=== PATIENT | female | born 1960 | race Caucasian/White ===

== ENCOUNTER 2017-03-08 12:27 | Day surgery (SDC) | payer SELFPAY ==
[2017-03-08 12:36] VITALS: BMI 23.1
--- NOTE | 2017-03-08 13:25 | ED.ABDFE ---
HPI - Time seen Time seen: 13:05 - PCP Primary Care Physician: KATHY SHEFFIELD - Complaint Chief Complaint Doctors Comments: Patient admits to abdominal pain for three days worse today; she was seen by her primary care physician today, his exam revealed RLQ pain. He contacted the surgeron and referred patient to the ED for evaluation. Chief Complaint:: PT C/O RLQ PAIN THAT RADIATES TO HER RIGHT BACK THAT STARTED LAST NIGHT AND ITS WORSE TODAY AND THAT SHE W NAUSEATED AND SHE WENT TO SEE PER PC AND HER PERFORMED A UA AND CALLED DR. LOMELI AND TOLD PT TO COME TO THER ER.. - Source History Provided: Patient - Mode of arrival Mode of Arrival: Ambulatory - Timing Onset of Chief Complaint: 03/07/17 PMH - PMH Past Medical History: Yes Past Medical History: Asthma Past Surgical History: Yes Surgical History: Cholecystectomy - Family History History of Family Medical Conditions: Yes Family Medical History: Cancer - Social History Does patient currently use any type of tobacco product: No Have you used tobacco products in the last 12 months: No Type of Tobacco Use: None Does any household member use tobacco: No Alcohol Use: None Do you use any recreational Drugs:: No Lives With: Family Lives Where: Home - infectious screening In the last 2 months have you had wt loss of >10#?: NO Have you had fever, night sweats or hemotysis?: No Have you traveled outside the country in the last 6 months?: No Isolation: Standard ROS - Review of Systems Eyes: No Symptoms Reported ENTM: No Symptoms Reported Respiratoy: No Symptoms Reported Cardiovascular: No Symptoms Reported Gastrointestinal/Abdominal: No Symptoms Reported Genitourinary: No Symptoms Reported Neurological: No Symptoms Reported Musculoskeletal: No Symptoms Reported Integumentary: No Symptoms Reported Hematologic/Lymphatic: No Symptoms Reported Endocrine: No Symptoms Reported Psychiatric: No Symptoms Reported All Other Systems: Reviewed and Negative PE - Vital Signs Vitals: Temperature 98.3 F Pulse Rate [Left Brachial] 77 Pulse Rate 74 Respiratory Rate 22 Blood Pressure [Left Arm] 144/66 Blood Pressure 124/59 O2 Sat by Pulse Oximetry 97 - General General Appearance: Alert, In No Apparent Distress - Head Head Exam: Normal Inspection, Atraumatic - Eyes Eye exam: Normal Appearance, PERRL, EOMI - ENT ENT Exam: Normal Exam - Neck Neck Exam: Normal Inspection, Full ROM - Chest Chest Inspection: Normal Inspection - Respiratory Respiratory Exam: Normal Lung Sounds Bilat Respiratory Exam: Bilateral Clear to Auscultation - Cardiovascular Cardiovascular Exam: Regular Rate, Normal Rhythm - Abdominal Exam Abdominal Exam: Normal Inspection, Normal Bowel Sounds Abdominal Tenderness: RLQ - Rectal Rectal Exam: Deferred - Back Back Exam: Normal Inspection - Extremeties Extremities Exam: Normal Inspection, Full ROM - External Exam: Female: Deferred : Speculum Exam (Female): Deferred : Bimanual Exam (female): Deferred - Neurologic Neurological Exam: Alert, Oriented X3, CN II-XII Intact - Psychiatric Psychiatric Exam: Normal Affect, Normal Mood - Skin Skin Exam: Warm, Dry, Intact Course - Consultation Called: 17:50 ROR - Labs Reviewed Result Diagrams: 03/08/17 13:13 03/08/17 13:13 Laboratory: WBC 13.6 X10^3/uL (3.6-10.0) H 03/08/17 13:13 RBC 5.15 X10^6/uL (3.5-5.4) 03/08/17 13:13 Hgb 14.2 g/dL (12.0-16.0) 03/08/17 13:13 Hct 42.0 % (36.0-47.0) 03/08/17 13:13 MCV 81.7 fL (80.0-100.0) 03/08/17 13:13 MCH 27.7 pg (27.0-34.0) 03/08/17 13:13 MCHC 33.9 g/dL (33.0-35.0) 03/08/17 13:13 RDW 13.6 % (11.6-16.5) 03/08/17 13:13 Plt Count 266 X10^3/uL (150.0-450.0) 03/08/17 13:13 MPV 7.7 fL (7.4-11.0) 03/08/17 13:13 Neut % 70.6 % (42.0-75.0) 03/08/17 13:13 Lymph % 18.5 % (21.0-51.0) L 03/08/17 13:13 Riley % 8.9 % (0.0-13.0) 03/08/17 13:13 Eos % 1.4 % (0.9-2.9) 03/08/17 13:13 Baso % 0.6 % (0.2-1.0) 03/08/17 13:13 Neut # 9.6 x10^3/uL (2.2-4.8) H 03/08/17 13:13 Lymph # 2.5 X10^3/uL (1.3-2.9) 03/08/17 13:13 Riley # 1.2 x10^3/uL (0.3-0.8) H 03/08/17 13:13 Eos # 0.2 x10^3/uL (0.0-0.2) 03/08/17 13:13 Baso # 0.1 X10^3/uL (0.0-0.1) 03/08/17 13:13 Absolute Nucleated RBC 0.0 /100WBC 03/08/17 13:13 Sodium 139 mmol/L (136-145) 03/08/17 13:13 Corrected Sodium TNP 03/08/17 13:13 Potassium 3.6 mmol/L (3.5-5.1) 03/08/17 13:13 Chloride 103 mmol/L (98-107) 03/08/17 13:13 Carbon Dioxide 29.7 mmol/L (21-32) 03/08/17 13:13 BUN 12 mg/dL (7-18) 03/08/17 13:13 Creatinine 0.86 mg/dL (0.55-1.02) 03/08/17 13:13 Est GFR (MDRD) Af Amer > 60 (>60) 03/08/17 13:13 Est GFR (MDRD) Non-Af > 60 (>60) 03/08/17 13:13 Glucose 98 mg/dL (65-99) 03/08/17 13:13 Calcium 9.3 mg/dL (8.5-10.1) 03/08/17 13:13 Corrected Calcium TNP 03/08/17 13:13 Total Bilirubin 1.00 mg/dL (0.2-1.0) 03/08/17 13:13 AST 13 Units/L (15-37) L 03/08/17 13:13 ALT 17 Units/L (12-78) 03/08/17 13:13 Alkaline Phosphatase 62 Units/L (46-116) 03/08/17 13:13 C-Reactive Protein 46.10 mg/L (0-3.0) H 03/08/17 13:13 Total Protein 8.0 g/dL (6.4-8.2) 03/08/17 13:13 Albumin 3.9 g/dL (3.4-5.0) 03/08/17 13:13 Globulin 4.1 g/dL (2.5-4.5) 03/08/17 13:13 Albumin/Globulin Ratio 1.0 Ratio (1.1-2.1) L 03/08/17 13:13 Specimen Type Clean catch urine 03/08/17 15:20 Urine Color Yellow (YELLOW) 03/08/17 15:20 Urine Appearance Hazy (CLEAR) 03/08/17 15:20 Urine pH 6.5 (5.0 - 8.0) 03/08/17 15:20 Ur Specific [place] 1.010 (1.000-1.030) 03/08/17 15:20 Urine Protein Negative (NEGATIVE) 03/08/17 15:20 Urine Glucose (UA) Negative (NEGATIVE) 03/08/17 15:20 Urine Ketones Negative (NEGATIVE) 03/08/17 15:20 Urine Occult Blood 1+ (NEGATIVE) 03/08/17 15:20 Urine Nitrite Negative (NEGATIVE) 03/08/17 15:20 Urine Bilirubin Negative (NEGATIVE) 03/08/17 15:20 Urine Urobilinogen Normal (NORMAL) 03/08/17 15:20 Ur Leukocyte Esterase 3+ (NEGATIVE) 03/08/17 15:20 Urine RBC 0-2 /HPF (NEGATIVE) 03/08/17 15:20 Urine WBC 3-5 /HPF (NEGATIVE) 03/08/17 15:20 Ur Squamous Epith Cells Few /HPF (NEGATIVE) 03/08/17 15:20 Urine Bacteria Trace /HPF (NEGATIVE) 03/08/17 15:20 Ur Culture Indicated? No/not indicated 03/08/17 15:20 - XRAY XRAY Interpreted by: Radiologist (CT Abd/pelv: There is inflammatory stranding within the right lower quadrant, with mild thickening and hyperemia of the appendix with a 1.5x1.3cm collection adjacent to the appendical tip. No significant thicikening or dilatation of the remainding lower GI tract appreciated. The uterus and ovaries are noted. The urinary bladder and rectum are unremarkable. No significant layering free fluid or adenopathy appreciated. Impression: Acute appendicitis with a 1.5x1.2cm collection adjacent to the distal appendix suggesting small abscess or contained perforation.) - Diagnosis Discharge Problem: Appendicitis Qualifiers: Appendicitis type: acute appendicitis Acute appendicitis type: unspecified acute appendicitis type Qualified Code(s): K35.80 - Unspecified acute appendicitis - Discharge Plan Condition: Stable - Follow ups/Referrals Follow ups/Referrals: KATHY SHEFFIELD [Primary Care Provider] - 3 days - Instructions
[2017-03-08 13:45] LABS: BASOPHILS # (AUTO) 0.1 X10^3/uL (0.0-0.1); BASOPHILS % (AUTO) 0.6 % (0.2-1.0); EOSINOPHILS # (AUTO) 0.2 x10^3/uL (0.0-0.2); EOSINOPHILS % (AUTO) 1.4 % (0.9-2.9); HEMOGLOBIN 14.2 g/dL (12.0-16.0); LYMPHOCYTES # (AUTO) 2.5 X10^3/uL (1.3-2.9); LYMPHOCYTES % (AUTO) 18.5 % (21.0-51.0); MEAN CORPUSCULAR HEMOGLOBIN 27.7 pg (27.0-34.0); MEAN CORPUSCULAR HGB CONC 33.9 g/dL (33.0-35.0); MEAN CORPUSCULAR VOLUME 81.7 fL (80.0-100.0); MEAN PLATELET VOLUME 7.7 fL (7.4-11.0); MONOCYTES # (AUTO) 1.2 x10^3/uL (0.3-0.8); MONOCYTES % (AUTO) 8.9 % (0.0-13.0); NEUTROPHILS # (AUTO) 9.6 x10^3/uL (2.2-4.8); NEUTROPHILS % (AUTO) 70.6 % (42.0-75.0); PLATELET COUNT 266 X10^3/uL (150.0-450.0); RED BLOOD COUNT 5.15 X10^6/uL (3.5-5.4); RED CELL DISTRIBUTION WIDTH 13.6 % (11.6-16.5); WHITE BLOOD COUNT 13.6 X10^3/uL (3.6-10.0)
[2017-03-08] MEDS: NS 1000 ML 1,000 ML IV SCH ×2 (13:49→22:47)
[2017-03-08 13:53] LABS: ALANINE AMINOTRANSFERASE 17 Units/L (12-78); ALBUMIN 3.9 g/dL (3.4-5.0); ALKALINE PHOSPHATASE 62 Units/L (46-116); ASPARTATE AMINO TRANSFERASE 13 Units/L (15-37); BLOOD UREA NITROGEN 12 mg/dL (7-18); CALCIUM 9.3 mg/dL (8.5-10.1); CARBON DIOXIDE 29.7 mmol/L (21-32); CHLORIDE 103 mmol/L (98-107); CREATININE 0.86 mg/dL (0.55-1.02); SODIUM 139 mmol/L (136-145); eGFR BLACK RACES > 60 (>60); eGFR NON BLACK RACES > 60 (>60)
[2017-03-08] MEDS ORDERED: ROBINUL ONE (15:05)
[2017-03-08] MEDS ORDERED: VERSED ONE (15:05)
[2017-03-08] MEDS ORDERED: ZOFRAN INJ 4 MG VIAL ONE (15:05)
[2017-03-08] MEDS ORDERED: DIPRIVAN VIAL ONE (15:05)
[2017-03-08] MEDS ORDERED: XYLOCAINE 2 % (PLAIN) ONE (15:05)
[2017-03-08] MEDS ORDERED: NEOSTIGMINE INJ ONE (15:05)
[2017-03-08] MEDS ORDERED: NORCURON INJ 10 MG VIAL ONE (15:05)
[2017-03-08] MEDS ORDERED: SUPRANE IN ONE (15:05)
[2017-03-08 15:42] LABS: BILIRUBIN,URINE NEGATIVE (NEGATIVE); BLOOD/HEMOGLOBIN,URINE 1+ (NEGATIVE); GLUCOSE, URINE NEGATIVE (NEGATIVE); KETONES,URINE NEGATIVE (NEGATIVE); LEUKOCYTE ESTERASE ,URINE 3+ (NEGATIVE); NITRITES,URINE NEGATIVE (NEGATIVE); PH,URINE 6.5 (5.0 - 8.0); PROTEIN,URINE NEGATIVE (NEGATIVE); UROBILINOGEN,URINE NORMAL (NORMAL)
[2017-03-08 15:49] LABS: APPEARANCE,URINE HAZY (CLEAR); BACTERIA,URINE TRACE /HPF (NEGATIVE); COLOR,URINE YELLOW (YELLOW); RBC,URINE 0-2 /HPF (NEGATIVE); SQUAMOUS EPITHELIAL CELL,UR FEW /HPF (NEGATIVE)
[2017-03-08] MEDS ORDERED: NS 100 ML IV 100 ML IV ONE (16:44)
--- NOTE | 2017-03-08 17:28 | CT ---
CT abdomen and pelvis with contrast Indication: Right lower quadrant pain, leukocytosis Comparison: None Technique: CT images of the abdomen and pelvis were obtained after IV and oral contrast administratio n. Automatic exposure control was utilized. Findings: The lung bases are clear. No acute skeletal abnormality. Previous cholecystectomy. The liver, spleen, stomach, duodenum, pancreas, adrenals, and kidneys demon strate no significant abnormality. Small simple appearing renal cysts are noted bilaterally. No urete ral stone identified. There is inflammatory stranding within the right lower quadrant, with mild thickening and hyperemia o f the appendix, with a 1.5 x 1.3 cm collection adjacent to the appendiceal tip (coronal image 22). No significant thickening or dilatation of the remaining lower GI tract appreciated. The uterus and ova srinath are noted. The urinary bladder and rectum are unremarkable. No significant layering free fluid o r adenopathy appreciated. Impression: Acute appendicitis with a 1.5 x 1.2 cm collection adjacent to the distal appendix, suggesting small a bscess or contained perforation. Reported By:
[2017-03-08] MEDS ORDERED: MARCAINE 0.25% INJ ONE (18:48)
[2017-03-08] MEDS ORDERED: LR 1000 ML IV 1,000 ML IV ONE ×2 (18:48→20:33)
[2017-03-08] MEDS ORDERED: ANCEF VIAL 1 GM ONE (18:48)
[2017-03-08] MEDS ORDERED: DUONEB 0.5 MG/3 MG ONE (18:51)
[2017-03-08] MEDS ORDERED: FENTANYL INJ 250 mcg ONE (19:00)
[2017-03-08] MEDS ORDERED: QUELICIN (OR ANECTINE) ONE (19:05)
[2017-03-08] MEDS ORDERED: XYLOCAINE 1 % (PLAIN) ONE (19:39)
[2017-03-08] MEDS ORDERED: NS IRRIGATION 3000 ML 3,000 ML IR ONE (20:07)
[2017-03-08] MEDS ORDERED: FENTANYL INJ 100 mcg ONE (20:13)
[2017-03-08] MEDS ORDERED: DILAUDID INJ ONE (20:13)
[2017-03-08] MEDS ORDERED: DILAUDID INJ IVP PRN (21:11)
[2017-03-08] MEDS ORDERED: PHENERGAN INJ 25 MG IVP PRN (21:11)
[2017-03-08] MEDS ORDERED: BENADRYL INJ 50 MG VIAL IVP PRN (21:11)
[2017-03-08] MEDS ORDERED: ZOFRAN INJ 4 MG VIAL IVP PRN (21:11)
[2017-03-08] MEDS ORDERED: REGLAN INJ 10 MG VIAL IVP PRN (21:11)
--- NOTE | 2017-03-08 21:17 | OR.GENERIC ---
Post-Op Note Generic - Post-Op Note Operative Report: Date of Operation: March 08, 2017 Pre-Operative Diagnosis: Acute appendicitis. Post-Operative Diagnosis: Suppurative appendicitis. Procedure: Laparoscopic appendectomy. Surgeon: Kennedy Haywood MD. [employer] Worker: Sergio Lopez CRNA. Specimen: Appendix. Estimated blood loss: Minimal. Complications: None. Summary: The patient is a 56 year old female who presented with appendicitis. The patient was offered appendectomy. The risk and benefits of the procedure including difficulty with anesthesia, bleeding, infection, conversion to open procedure, hernia formation, DVT, as well as PE were discussed with the patient. The patient understood these risks and requested the procedure. On March 08, 2017, the patient was brought to the operative theatre. A time out was performed verifying the patient and procedure. After satisfactory induction of general endotracheal anesthesia, the abdomen was prepped with Chloraprep and draped in the usual sterile fashion. The skin and subcutaneous tissue inferior to the umbilicus was anesthetized using local anesthetic. The skin was incised sharply. A 12 mm trocar was placed though the incision and into the peritoneal cavity using the Optiview technique. Carbon dioxide was infiltrated through this trocar to obtain a pneumoperitoneum of 15 mm Hg. A camera was placed through this trocar and swept in all directions. No injury was seen from entering the peritoneal cavity. A site was selected in the right upper quadrant for our 2nd trocar. The skin and fascia was anesthetized using local anesthetic. The skin was incised sharply. A 5 mm trocar was placed into the peritoneal cavity under direct visualization. An additional 5 mm trocar was placed in the left lower quadrant in a similar fashion. The cecum was elevated. Inflammation was noted along the appendix with adhesions at the midportion and tip of the appendix. The appendix was freed using blunt dissection. The appendix was elevated and a window made in the mesoappendix. The appendix was divided at the cecum using a SHYLA stapler with a tissue load. The mesoappendix was divided using a SHYLA stapler with vascular loads x 2. Arterial bleeding from the mesoappendix staple lines was controlled using 5 mm clips x 2. No further bleeding was seen. The appendix was placed in an endobag and removed through the umbilical trocar site. The staple lines were irrigated and no persistent bleeding noted. The right lower quadrant was irrigated. All irrigation fluid was removed. The 5 mm trocars were removed under direct visualization and no bleeding seen. The umbilical trocar was removed and insufflation evacuated. The fascia at the umbilicus was re- approximated using a 0-Vicryl placed in a [id number] configuration and a single interrupted stitch. The skin edges at all incisions were re- approximated using inverted, interrupted 4-0 Monocryl sutures. Benzoin and Steri-strips were placed. Sterile dressings were placed. The patient was awakened and taken to the recovery room in stable condition. There were no complications. All counts were correct.
[2017-03-08] MEDS ORDERED: ZOSYN VIAL 3.375 GM IV SCH (22:00)
[2017-03-08] MEDS: ZOSYN VIAL 3.375 GM 3.375 GM in NS 100 ML IV + SPIKE MINIBAG* 100 ML IV SCH (22:44)
[2017-03-09] MEDS: PERCOCET TAB 5/325 MG PO PRN ×2 (03:02→09:52)
[2017-03-09] MEDS: ZOSYN VIAL 3.375 GM 3.375 GM in NS 100 ML IV + SPIKE MINIBAG* 100 ML IV SCH (06:02)
[2017-03-09 06:21] LABS: BASOPHILS % (AUTO) 0.2 % (0.2-1.0); EOSINOPHILS % (AUTO) 0.1 % (0.9-2.9); HEMATOCRIT 36.8 % (36.0-47.0); HEMOGLOBIN 12.6 g/dL (12.0-16.0); LYMPHOCYTES # (AUTO) 1.2 X10^3/uL (1.3-2.9); LYMPHOCYTES % (AUTO) 9.6 % (21.0-51.0); MEAN CORPUSCULAR HGB CONC 34.2 g/dL (33.0-35.0); MEAN PLATELET VOLUME 8.4 fL (7.4-11.0); MONOCYTES # (AUTO) 1.2 x10^3/uL (0.3-0.8); MONOCYTES % (AUTO) 9.9 % (0.0-13.0); NEUTROPHILS % (AUTO) 80.2 % (42.0-75.0); PLATELET COUNT 229 X10^3/uL (150.0-450.0); RED BLOOD COUNT 4.49 X10^6/uL (3.5-5.4); RED CELL DISTRIBUTION WIDTH 13.4 % (11.6-16.5); WHITE BLOOD COUNT 12.5 X10^3/uL (3.6-10.0)
[2017-03-09 06:37] LABS: BLOOD UREA NITROGEN 9 mg/dL (7-18); CALCIUM 8.3 mg/dL (8.5-10.1); CARBON DIOXIDE 26.7 mmol/L (21-32); CHLORIDE 107 mmol/L (98-107); CREATININE 0.66 mg/dL (0.55-1.02); SODIUM 140 mmol/L (136-145); eGFR BLACK RACES > 60 (>60); eGFR NON BLACK RACES > 60 (>60)
[2017-03-09] MEDS: NS 1000 ML 1,000 ML IV SCH (06:43)
[2017-03-09 09:27] VITALS: BP 106/48
== END 2017-03-09 11:40 | disposition home or self-care (01) ==
LOC: ER 12:52 → SURG1 19:43 → MED/SURG 20:45 → SURG1 03-09 11:40
PROVIDERS: ATTEND Internal Medicine
PROC: 0DTJ4ZZ Resection of Appendix, Percutaneous Endoscopic Approach (ICD-10-PCS; principal; 2017-03-08 19:00)
DX: K35.89 Other acute appendicitis (principal); R10.31 Right lower quadrant pain; D72.828 Other elevated white blood cell count; R79.82 Elevated C-reactive protein (CRP)
CPT/HCPCS: 36415; 74177; 80048; 80053; 81001; 85025; 86140; 94640; 96365; 96374; 99284; A4216; A4222; S0020; J0330; J0690; J1170; J2001; J2250; J2405; J2543; J2710; J3010; J3490; J7120; J7620

== ENCOUNTER → 2017-08-23 | Day surgery (SDC) | payer SELFPAY ==
[~2017-08-23] MED LIST: DIPRIVAN VIAL 20 ML ONE; DUONEB 0.5 MG/3 MG NEB ONE; NS 1000 ML 1,000 ML ONE; XYLOCAINE 2 % (PLAIN) ONE
[2017-08-23 08:30] LABS: BASOPHILS # (AUTO) 0.1 X10^3/uL (0.0-0.1); BASOPHILS % (AUTO) 0.8 % (0.2-1.0); EOSINOPHILS # (AUTO) 0.4 x10^3/uL (0.0-0.2); EOSINOPHILS % (AUTO) 4.9 % (0.9-2.9); HEMATOCRIT 43.1 % (36.0-47.0); HEMOGLOBIN 14.7 g/dL (12.0-16.0); LYMPHOCYTES # (AUTO) 2.1 X10^3/uL (1.3-2.9); LYMPHOCYTES % (AUTO) 28.1 % (21.0-51.0); MEAN CORPUSCULAR HEMOGLOBIN 27.8 pg (27.0-34.0); MEAN CORPUSCULAR VOLUME 81.8 fL (80.0-100.0); MEAN PLATELET VOLUME 7.8 fL (7.4-11.0); MONOCYTES # (AUTO) 0.7 x10^3/uL (0.3-0.8); MONOCYTES % (AUTO) 9.4 % (0.0-13.0); NEUTROPHILS # (AUTO) 4.2 x10^3/uL (2.2-4.8); NEUTROPHILS % (AUTO) 56.8 % (42.0-75.0); PLATELET COUNT 313 X10^3/uL (150.0-450.0); RED BLOOD COUNT 5.26 X10^6/uL (3.5-5.4); RED CELL DISTRIBUTION WIDTH 13.3 % (11.6-16.5); WHITE BLOOD COUNT 7.4 X10^3/uL (3.6-10.0)
[2017-08-23 08:37] LABS: BLOOD UREA NITROGEN 12 mg/dL (7-18); CALCIUM 8.7 mg/dL (8.5-10.1); CARBON DIOXIDE 28.8 mmol/L (21-32); CHLORIDE 103 mmol/L (98-107); CREATININE 0.81 mg/dL (0.55-1.02); SODIUM 140 mmol/L (136-145); eGFR BLACK RACES > 60 (>60); eGFR NON BLACK RACES > 60 (>60)
[2017-08-23 09:28] LABS: PLATELET MORPHOLOGY COMMENT NORMAL (NORMAL)
[2017-08-23 09:54] VITALS: BP 120/57
[2017-08-23 12:04] LABS: ALANINE AMINOTRANSFERASE 39 Units/L (12-78); ALBUMIN 3.9 g/dL (3.4-5.0); ALKALINE PHOSPHATASE 62 Units/L (46-116); ASPARTATE AMINO TRANSFERASE 17 Units/L (15-37); TOTAL PROTEIN 8.3 g/dL (6.4-8.2)
--- NOTE | 2017-08-23 14:06 | OR.GENERIC ---
Post-Op Note Generic - Post-Op Note Operative Report: Procedure Note August 23, 2017 Pre-Operative Diagnosis: Screening colonoscopy. Post-Operative Diagnosis: Mild sigmoid diverticulosis. Procedure: Colonoscopy to cecum. Surgeon: Kennedy Haywood MD Citizenship Teacher: Sergio Lopez CRNA Specimens: None. Estimated blood loss: None. Complications: None. Summary: The patient is a 57 year old female who presented for a screening colonoscopy. The patient does have a family history of colon cancer. The risk and benefits of the procedure including difficulty with anesthesia, bleeding, infection, as well as perforation were discussed with the patient. The patient understood these risks and requested the procedure. On August 23, 2017, the patient was brought to the endoscopy suite. A time out was performed verifying the patient and procedure. The patient was placed in a left lateral decubitus position. After satisfactory induction of monitored anesthesia care, a rectal exam was performed. This was normal. Next, an endoscopy was advanced through the anus and directed to the cecum without difficulty. The scope was then withdrawn viewing all mucosal surfaces. The patients prep was adequate. The cecum, ascending, transverse, as well as descending portions of the colon were normal. Specifically, there were no masses, polyps, or diverticula. The scope was withdrawn through the sigmoid portion of the colon. No masses or polyps were seen. However, a few diverticula were seen. There was no evidence of diverticulitis. The scope was withdrawn into the rectum and retroflexed. No pathology was seen. The scope was straightened and insufflation evacuated. The scope was withdrawn and the procedure terminated. The patient was taken to the recovery room in stable condition. There were no complications.
== END ==
LOC: SURG1 07:29
PROVIDERS: ATTEND Student in an Organized Health Care Education/Training Program
PROC: 0DJD8ZZ Inspection of Lower Intestinal Tract, Via Natural or Artificial Opening Endoscopic (ICD-10-PCS; principal; 2017-08-23 08:30)
DX: Z12.11 Encounter for screening for malignant neoplasm of colon (principal); K57.30 Diverticulosis of large intestine without perforation or abscess without bleeding; Z80.0 Family history of malignant neoplasm of digestive organs; R06.2 Wheezing
CPT/HCPCS: 36415; 80053; 85025; 94640; A4217; J2001; J3490; J7620